=== PATIENT | female | born 1985 | race African-American/Black ===

== ENCOUNTER 2019-08-13 16:13 | Emergency (ER) | payer OTHER ==
[2019-08-13] MEDS ORDERED: ACETAMINOPHEN 325 MG TABLET PO ONE (16:55)
[2019-08-13] MEDS ORDERED: RINGERS SOLUTION,LACTATED 1,000 ML IV ONE (16:56)
[2019-08-13] MEDS ORDERED: ONDANSETRON HCL INJ/PF 4 MG/2 ML SDV IV ONE (16:56)
--- NOTE | 2019-08-13 16:59 | ER Document Report ---
ED Medical Screen (RME) - General Chief Complaint: Weakness Stated Complaint: DIARRHEA,VOMITING,BODY ACHES Time Seen by Provider: 08/13/19 16:49 Mode of Arrival: Ambulatory Information source: Patient Notes: HPI; 34-year-old female presents emergency room complaining of vomiting, dizziness, generalized body aches, subjective fever 2 episodes of diarrhea this morning. Patient states she traveled to [facility] last week. No known COVID-19 exposure. No medications for symptoms. States she is unable to tolerate anything p.o. today. PE: Alert and oriented x3. Mild distress noted. Lungs: Clear to auscultation without rales, rhonchi, wheezes. Heart: Regular rate and rhythm without murmurs, rubs, gallops. I have greeted and performed a rapid initial assessment of this patient. A comprehensive ED assessment and evaluation of the patient, analysis of test results and completion of the medical decision making process will be conducted by additional ED providers. I have specifically instructed the patient or family members with the patient to immediately return to any nursing staff should anything change in the patient's condition or with their chief complaint. TRAVEL OUTSIDE OF THE [place] IN LAST 30 DAYS: No - Related Data Allergies/Adverse Reactions: No Known Allergies Allergy (Unverified 08/13/19 16:47) Physical Exam - Vital signs Vitals: Temp Pulse Resp BP Pulse Ox 99.1 F 96 16 132/71 H 98 08/13/19 16:18 08/13/19 16:18 08/13/19 16:18 08/13/19 16:18 08/13/19 16:18 Course - Vital Signs Vital signs: Temp Pulse Resp BP Pulse Ox 99.1 F 96 16 132/71 H 98 08/13/19 16:18 08/13/19 16:18 08/13/19 16:18 08/13/19 16:18 08/13/19 16:18
[2019-08-13 18:42] LABS: APPEARANCE,URINE SLIGHTLY-CLOUDY; BILIRUBIN,URINE NEGATIVE (NEGATIVE); COLOR,URINE YELLOW; GLUCOSE, URINE NEGATIVE (NEGATIVE); KETONES,URINE NEGATIVE (NEGATIVE); LEUKOCYTE ESTERASE,URINE NEGATIVE (NEGATIVE); NITRITE,URINE NEGATIVE (NEGATIVE); PROTEIN,URINE NEGATIVE (NEGATIVE); URINE SPECIFIC GRAVITY 1.024; UROBILINOGEN,URINE NEGATIVE mg/dL (<2.0)
[2019-08-13 18:43] LABS: ABSOLUTE BASOPHILS # (AUTO) 0.1 10^3/uL (0.0-0.2); ABSOLUTE EOSINOPHILS # (AUTO) 0.1 10^3/uL (0.0-0.6); ABSOLUTE LYMPHOCYTES (AUTO) 2.3 10^3/uL (0.5-4.7); ABSOLUTE MONOCYTES (AUTO) 0.8 10^3/uL (0.1-1.4); ABSOLUTE NEUT (AUTO) 7.8 10^3/uL (1.7-8.2); BASOPHILS % (AUTO) 0.5 % (0-2); EOSINOPHILS % (AUTO) 1.2 % (0-6); HEMATOCRIT 39.7 % (36.0-47.0); LYMPHOCYTES % (AUTO) 20.4 % (13-45); MEAN CORPUSCULAR HEMOGLOBIN 28.8 pg (27.0-33.4); MEAN CORPUSCULAR HGB CONC 32.9 g/dL (32.0-36.0); MEAN CORPUSCULAR VOLUME 88 fl (80-97); MONOCYTES % (AUTO) 7.5 % (3-13); PLATELET COUNT 395 10^3/uL (150-450); RED BLOOD COUNT 4.52 10^6/uL (3.72-5.28); SEGMENTED NEUTROPHILS % (AUTO) 70.4 % (42-78); TOTAL CELLS COUNTED % (AUTO) 100 %
[2019-08-13 19:12] LABS: ALBUMIN 4.3 g/dL (3.5-5.0); ALKALINE PHOSPHATASE 81 U/L (38-126); ANION GAP 8 (5-19); ASPARTATE AMINO TRANSFERASE 19 U/L (14-36); BILIRUBIN,TOTAL 0.3 mg/dL (0.2-1.3); BLOOD UREA NITROGEN 10 mg/dL (7-20); CALCIUM 9.3 mg/dL (8.4-10.2); CARBON DIOXIDE 28 mmol/L (22-30); CHLORIDE 101 mmol/L (98-107); GLUCOSE 93 mg/dL (75-110); TOTAL PROTEIN 8.4 g/dL (6.3-8.2)
--- NOTE | 2019-08-13 19:37 | ER Document Report ---
ED General - General Chief Complaint: Weakness Stated Complaint: DIARRHEA,VOMITING,BODY ACHES Time Seen by Provider: 08/13/19 16:49 Mode of Arrival: Ambulatory Information source: Patient Notes: HORACIO HO; 34-year-old female presents emergency room complaining of vomiting, dizziness, generalized body aches, subjective fever 2 episodes of diarrhea this morning. Patient states she traveled to [facility] last week. No known COVID-19 exposure. No medications for symptoms. States she is unable to tolerate anything p.o. today. TRAVEL OUTSIDE OF THE [place] IN LAST 30 DAYS: No - Related Data Allergies/Adverse Reactions: No Known Allergies Allergy (Unverified 08/13/19 16:47) Past Medical History - General Information source: Patient - Social History Smoking Status: Unknown if Ever Smoked Family History: None Patient has homicidal ideation: No - Medical History Medical History: Other - Optic nerve swelling Review of Systems - Review of Systems Constitutional: Weakness EENT: Throat pain. denies: Difficulty swallowing Gastrointestinal: Nausea, Vomiting -: Yes All other systems reviewed and negative Physical Exam - Vital signs Vitals: Temp Pulse Resp BP Pulse Ox 99.1 F 96 16 132/71 H 98 08/13/19 16:18 08/13/19 16:18 08/13/19 16:18 08/13/19 16:18 08/13/19 16:18 - Notes Notes: PHYSICAL EXAMINATION: GENERAL: Well-appearing, well-nourished and in no acute distress. HEAD: Atraumatic, normocephalic. EYES: Pupils equal round and reactive to light, extraocular movements intact, conjunctiva are normal. ENT: Nares patent, oropharynx mildly erythematous without exudates. No tonsillar swelling. Uvula midline. Moist mucous membranes. NECK: Normal range of motion, supple without lymphadenopathy LUNGS: Breath sounds clear to auscultation bilaterally and equal. No wheezes rales or rhonchi. HEART: Regular rate and rhythm without murmurs ABDOMEN: Soft, nontender, nondistended abdomen. No guarding, no rebound. No masses appreciated. Female : deferred Musculoskeletal: Normal range of motion, no pitting or edema. No cyanosis. NEUROLOGICAL: Cranial nerves grossly intact. Normal speech, normal gait. Normal sensory, motor exams PSYCH: Normal mood, normal affect. SKIN: Warm, Dry, normal turgor, no rashes or lesions noted. Course - Re-evaluation Re-evalutation: Patient appears well, nontoxic. She feels much improved after administration of IV fluids and medications in the emergency department. Her labs are reassuring. At the time of discharge she does now mention to me that she has a sore throat and has had a recent exposure to strep. Her throat appears mildly erythematous but without exudates or swelling. Uvula midline. Patient will be discharged home on appropriate medications. Strict ED return precautions were discussed. - Vital Signs Vital signs: Temp Pulse Resp BP Pulse Ox 99.1 F 87 18 134/61 H 100 08/13/19 22:08 08/13/19 22:08 08/13/19 17:04 08/13/19 22:08 08/13/19 22:08 - Laboratory Result Diagrams: 08/13/19 17:58 08/13/19 17:58 Laboratory results interpreted by me: 08/13/19 08/13/19 17:58 17:58 WBC 11.0 H Sodium 136.5 L Total Protein 8.4 H Discharge - Discharge Clinical Impression: Encounter for laboratory testing for COVID-19 virus, Nausea Acute pharyngitis Qualifiers: Pharyngitis/tonsillitis etiology: unspecified etiology Qualified Code(s): J02.9 - Acute pharyngitis, unspecified Condition: Stable Disposition: HOME, SELF-CARE Additional Instructions: I suspect your symptoms are coming from a viral infection. Your oxygen level is not so low that you need to be admitted. If simply walking across the room makes you feel like you are going to pass out or like you just walked up 2 flights of steps please return to the emergency department. Please let any healthcare personnel that you see know that you have been tested for coronavirus. This includes if you need to return to the emergency department. You were tested for coronavirus (COVID 19) but these results may take 7 days or more to come back. Please stay in your house until they are resulted back or until you have been completely symptom-free for at least 3 days. Prescriptions: Penicillin V Potassium [Penicillin Vk 500 mg Tablet] 500 mg PO BID #20 tablet Ondansetron [Zofran Odt 4 mg Tablet] 1 - 2 tab PO Q4H PRN #15 tab.rapdis PRN Reason: For Nausea/Vomiting
[2019-08-13 22:15] VITALS: BP 134/61
== END 2019-08-13 22:16 | disposition home or self-care (01) ==
LOC: ER 16:13
DX: J02.9 Acute pharyngitis, unspecified (principal); R11.0 Nausea; R53.1 Weakness; R19.7 Diarrhea, unspecified; M79.10 Myalgia, unspecified site; R42 Dizziness and giddiness; Z20.828 Contact with and (suspected) exposure to other viral communicable diseases
CPT/HCPCS: 99283; 96361; 96374; 36415; 84703; 85025; 87635; 80053; 81001; J2405; J7120; C9803